=== PATIENT | male | born 1995 | race Caucasian/White ===

== ENCOUNTER 2021-04-11 04:17 | Emergency (ER) | payer OTHER ==
[2021-04-11 05:22] LABS: HEMOGLOBIN 14.9 gm/dl (14.0-17.5); RED BLOOD COUNT 4.86 M/UL (4.20-5.50); WHITE BLOOD COUNT 9.6 K/UL (4.5-11.0)
[2021-04-11 05:51] LABS: BUN/CREATININE RATIO 16 (0-10)
== END 2021-04-11 06:40 | disposition home or self-care (01) ==
LOC: ER1 04:17
PROVIDERS: Emergency Medicine
DX: R07.89 Other chest pain (principal); R91.1 Solitary pulmonary nodule; Z88.2 Allergy status to sulfonamides; E66.9 Obesity, unspecified
CPT/HCPCS: 80053; 82550; 82553; 83874; 83880; 84484; 85025; 93005; 99285; Q9967